=== PATIENT | female | born 1965 | race Caucasian/White ===

== ENCOUNTER 2024-02-25 15:09 | Outpatient (CLI) | payer OTHER | END 2024-02-25 15:10 | disposition home or self-care (01) | LOC: CSHMAMMO 15:09 | PROVIDERS: ATTEND Physician Assistant | DX: Z13.820 Encounter for screening for osteoporosis (principal); M85.851 Other specified disorders of bone density and structure, right thigh; M85.852 Other specified disorders of bone density and structure, left thigh | CPT/HCPCS: 77080 ==

== ENCOUNTER 2025-03-02 10:45 | Outpatient (CLI) | payer OTHER, SELFPAY | END 2025-03-02 10:46 | disposition home or self-care (01) | LOC: CSHULT 10:45 | PROVIDERS: ATTEND Physician Assistant | DX: R92.8 Other abnormal and inconclusive findings on diagnostic imaging of breast (principal) ==